=== PATIENT | female | born 1965 | race Caucasian/White ===

== ENCOUNTER 2017-07-22 10:10 | Emergency (ER) | payer OTHER, MEDICAID ==
[2017-07-22] MEDS: METOCLOPRAMIDE 10 MG INJ IV (11:36)
[2017-07-22] MEDS: KETOROLAC 30 MG INJ IV (11:37)
[2017-07-22] MEDS: DIPHENHYDRAMINE 50 MG INJ IV (11:37)
[2017-07-22] MEDS: SOD CHLORIDE 0.9% 1,000 ML IV (11:37)
== END 2017-07-22 12:56 | disposition home or self-care (01) ==
LOC: FTE 10:10
DX: R51 Headache (principal); R11.2 Nausea with vomiting, unspecified; J45.909 Unspecified asthma, uncomplicated
CPT/HCPCS: 96374; 96375; 99284-25

== ENCOUNTER 2017-12-07 20:07 | Emergency (ER) | payer OTHER ==
[2017-12-07] MEDS: DEXAMETHASONE 10 MG/ML 1 ML INJ IM (22:35)
[2017-12-07] MEDS: ALBUTEROL 0.5% (NEB) 2.5 MG/0.5 ML AMP INH (22:52)
== END 2017-12-08 00:40 | disposition home or self-care (01) ==
LOC: FTE 12-08 00:40
DX: J45.901 Unspecified asthma with (acute) exacerbation (principal)
CPT/HCPCS: 71045; 94644; 96372; 99284-25

== ENCOUNTER 2018-01-06 17:48 | Emergency (ER) | payer OTHER ==
[2018-01-06] MEDS: KETOROLAC 30 MG INJ IM (19:15)
== END 2018-01-06 20:39 | disposition home or self-care (01) ==
LOC: FTE 17:48
DX: M25.512 Pain in left shoulder (principal); J45.909 Unspecified asthma, uncomplicated; R00.1 Bradycardia, unspecified
CPT/HCPCS: 73030; 93005; 96372; 99284-25

== ENCOUNTER 2018-08-31 18:35 | Emergency (ER) | payer SELFPAY, OTHER ==
[2018-08-31] MEDS: IBUPROFEN 600 MG TAB PO (21:43)
== END 2018-08-31 21:59 | disposition home or self-care (01) ==
LOC: FTE 18:35
DX: H60.91 Unspecified otitis externa, right ear (principal); J45.909 Unspecified asthma, uncomplicated
CPT/HCPCS: 99282

== ENCOUNTER 2018-10-28 17:48 | Emergency (ER) | payer OTHER | END 2018-10-28 19:16 | disposition home or self-care (01) | LOC: FTE 17:48 | DX: R05 Cough (principal); J45.909 Unspecified asthma, uncomplicated | CPT/HCPCS: 99283; Z7502 ==